=== PATIENT | female | born 1950 | race Caucasian/White ===

== ENCOUNTER 2021-01-26 06:54 | Day surgery (SDC) | payer MEDICARE ==
[2021-01-26] MEDS ORDERED: Midazolam 1 MG/ML 2 ML SDV ONE (07:01)
[2021-01-26] MEDS ORDERED: Propofol 200 MG/20 ML SDV ONE ×2 (07:01→09:40)
[2021-01-26] MEDS ORDERED: fentaNYL 100 MCG/2 ML SDV ONE (07:01)
[2021-01-26] MEDS ORDERED: Dextrose 5%-Lactated Ringers 1,000 ML IV SCH (07:30)
[2021-01-26] MEDS ORDERED: Barium Sulfate 105% w/v Susp 1,900 ML Bottle PO ONE (10:50)
[2021-01-26 10:58] VITALS: BP 112/69; PULSE 58
--- NOTE | 2021-01-26 13:45 | CR ---
Barium Enema Comp CLINICAL HISTORY: Incomplete screening colonoscopy FINDINGS: Preliminary film of the abdomen is unremarkable. Barium flowed freely from the rectum to the cecum. Appendix was visualized There are no abnormal masses in the colon. No obstructing lesions are seen. There is a normal mucosal pattern. There is some minimal sigmoid diverticulosis IMPRESSION: Mild diverticulosis Otherwise essentially negative study
--- NOTE | 2021-02-09 12:34 | OR ---
DATE OF PROCEDURE: 01/26/2021 SURGEON: Bakari Marlow MD PREOPERATIVE DIAGNOSIS: Indications for screening colonoscopy. POSTOPERATIVE DIAGNOSIS: 1. Screening colonoscopy (to proximal transverse colon) showing extensive left colonic diverticulosis. 2. Extremely tortuous and elongated colon preventing colonoscopic examination proximal to proximal transverse colon. PROCEDURE PERFORMED: Flexible colonoscopy to proximal transverse colon. ANESTHESIA: IV sedation. INDICATION FOR PROCEDURE: A 70-year-old female presenting with indications for screening colonoscopy. She has no personal or family history of colonic neoplasia. She does report an extremely elongated colonoscopy, and this is confirmed by review of the operative report from 10 years ago. The plan is to proceed with colonoscopy with biopsies and/or polypectomy. Potential risks including bleeding and perforation were discussed, and the patient wishes to proceed. DETAILS OF PROCEDURE: The patient was taken to the operating room and placed in a left lateral decubitus position. IV sedation was administered after which the initial digital rectal exam was performed and was unremarkable. The colonoscope was advanced to the level of the rectum with retroflexion revealing uncomplicated hemorrhoidal columns. The scope was eventually passed to the level of the proximal transverse colon beyond which the scope could not be further passed. The prep to that level was quite good. There was some uncomplicated left colonic diverticulosis noted. Otherwise, no colitis, areas of polyps, or other signs of neoplasia to that extent. The scope was then withdrawn, and the procedure was then concluded. The patient subsequently underwent a barium enema x-ray examination to evaluate the remainder of the colon. No additional pathology was seen on that examination. Given the patient's lack of personal or family history of colonic neoplasia, a followup colonoscopy and/or other screening tests could be done on a p.r.n. basis. Bakari Marlow MD /[id number]
== END 2021-01-26 13:58 | disposition home or self-care (01) ==
LOC: JP.SDS 06:54
PROVIDERS: ATTEND Surgery
DX: Z12.11 Encounter for screening for malignant neoplasm of colon (principal); K57.30 Diverticulosis of large intestine without perforation or abscess without bleeding; K63.89 Other specified diseases of intestine; K64.9 Unspecified hemorrhoids; Z91.040 Latex allergy status; Z91.09 Other allergy status, other than to drugs and biological substances
CPT/HCPCS: 74270; 74270-26; J2250; J2704; J3010; J7121